=== PATIENT | female | born 1990 | race Caucasian/White ===

== ENCOUNTER 2019-02-23 13:17 | Emergency (ER) | payer MEDICAID ==
[~2019-02-23] VITALS: Ht 167.6 cm; Wt 74.8 kg
[2019-02-23 13:24] VITALS: BP_SYST 146
--- NOTE | 2019-02-23 13:31 | NUR ---
Patient to ER bed 04 to gown for evaluation. Side rails up.
--- NOTE | 2019-02-23 13:40 | NUR ---
ER at bedside examining patient.
--- NOTE | 2019-02-23 13:50 | NUR ---
Pt presents to ED c/o migraine type headache.Pt reports no official dx.HARP x 3-4 days w/o relief from meds
[2019-02-23] MEDS ORDERED: IBUPROFEN 800 MG TABLET PO ONE (14:00)
[2019-02-23] MEDS ORDERED: PROMETHAZINE INJ.Non-Formulary 25 MG/ML AMP IM ONE (14:00)
[2019-02-23] MEDS ORDERED: HYDROcodone/ACETAMIN 7.5-325 MG TAB PO ONE (14:15)
[2019-02-23] MEDS ORDERED: PROMETHAZINE INJ.Non-Formulary 25 MG/ML AMP ONE (14:36)
[2019-02-23 14:44] LABS: BASOPHILS % (AUTO) 0.3 % (0.0-2.0); EOSINOPHILS % (AUTO) 0.2 % (0.0-4.0); HEMATOCRIT 39.6 % (36-48); HEMOGLOBIN 13.3 g/dL (12.0-16.0); LYMPHOCYTES # (AUTO) 0.8 K/uL (1.0-5.5); LYMPHOCYTES % (AUTO) 8.3 % (20.5-51.5); MEAN CORPUSCULAR HEMOGLOBIN 32 pg (27-31); MEAN CORPUSCULAR HGB CONC 34 % (32-36); MEAN CORPUSCULAR VOLUME 94 fL (79.0-98.0); MONOCYTES # (AUTO) 0.5 K/uL (0.0-1.0); MONOCYTES % (AUTO) 5.1 % (1.7-9.3); NEUTROPHILS # (AUTO) 8.5 K/uL (1.8-7.7); NEUTROPHILS % (AUTO) 86.1 % (40.0-70.0); PLATELET COUNT (AUTO) 267 K/uL (130-430); RED BLOOD CELL COUNT(AUTO) 4.23 MIL/uL (4.2-6.2); RED CELL DISTRIBUTION WIDTH 12.6 % (9.0-15.0); WHITE BLOOD COUNT (AUTO) 9.9 K/uL (4.8-10.8)
--- NOTE | 2019-02-23 14:44 | NUR ---
Pt medicated .pt tolerated well. continuing to monitor
[2019-02-23 14:50] LABS: CREATININE 0.64 mg/dL (0.55-1.30); POTASSIUM 3.2 mmol/L (3.5-5.1)
[2019-02-23 14:55] LABS: ALBUMIN 4.1 g/dL (3.4-4.8); TOTAL BILIRUBIN 0.9 mg/dL (0.0-1.0)
[2019-02-23 15:30] VITALS: BP_SYST 135
--- NOTE | 2019-02-23 15:30 | NUR ---
Patient given written and verbal discharge instructions and verbalizes understanding. ER MD discussed with patient the results and treatment provided. Patient in stable condition. Patient w/o instructions Pain Scale 0
== END 2019-02-23 15:30 | disposition home or self-care (01) ==
LOC: SED 13:17
DX: R51 Headache (principal); R03.0 Elevated blood-pressure reading, without diagnosis of hypertension
CPT/HCPCS: 36415; 70450; 80053; 81025; 85025; 96372; 99284; J2550